=== PATIENT | female | born 1960 | race American Indian/Alaskan Native ===

== ENCOUNTER 2020-11-15 15:43 | Inpatient (IN) | payer MEDICARE ==
--- NOTE | 2020-11-16 04:47 | XRay Report ---
CHEST 1 VIEW 11/16/2020 3:31 AM INDICATION / CLINICAL INFORMATION: SOB. COMPARISON: None available. FINDINGS: SUPPORT DEVICES: None. HEART / MEDIASTINUM: Mild cardiomegaly LUNGS / PLEURA: Mild bilateral airspace disease characteristic for pneumonia No pneumothorax. ADDITIONAL FINDINGS: No significant additional findings. IMPRESSION: 1. Mild bilateral pneumonia Signer Name: Mich Chavez MD Signed: 11/16/2020 4:42 AM Workstation Name: [id number]
[2020-11-16] MEDS ORDERED: AZITHROMYCIN/NS 500 MG/250 ML 500 MG/250 ML BAG IV ONE (12:05)
[2020-11-16] MEDS ORDERED: SODIUM CHLORIDE 0.9% 500 ML 500 ML IV ONE (12:05)
[2020-11-16] MEDS ORDERED: cefTRIAXone/NS 2 GM/100 ML 2 GM/100 ML BAG IV ONE (12:05)
[2020-11-16] MEDS ORDERED: ONDANSETRON 4 MG/2 ML INJ IV ONE (12:38)
[2020-11-16 12:39] LABS: Eosinophils % (Auto) 0.2 % (0.0-4.3); Hematocrit 43.2 % (30.3-42.9); Hemoglobin 14.6 gm/dl (10.1-14.3); Lymphocytes # (Auto) 1.1 K/mm3 (1.2-5.4); Lymphocytes % (Auto) 17.3 % (13.4-35.0); Mean Corpuscular HGB Conc 34 % (30-34); Mean Corpuscular Volume 87 fl (79-97); Monocytes # (Auto) 0.8 K/mm3 (0.0-0.8); Monocytes % (Auto) 12.5 % (0.0-7.3); Platelet Count 208 K/mm3 (140-440); Red Blood Count 4.98 M/mm3 (3.65-5.03); Red Cell Distribution Width 14.6 % (13.2-15.2)
[2020-11-16] MEDS ORDERED: HYDROcodone/ACETAMINOPHEN 5-325 MG TAB PO ONE (12:49)
[2020-11-16 14:25] LABS: Alanine Aminotransferase 52 units/L (7-56); Albumin 3.4 g/dL (3.9-5); BUN/Creatinine Ratio 25; Blood Urea Nitrogen 20 mg/dL (7-17); Calcium 9.6 mg/dL (8.4-10.2); Hemolysis Index 10
--- NOTE | 2020-11-16 14:25 | Emergency Department Report ---
ED Shortness of Breath HPI - General Chief Complaint: Dyspnea/Respdistress Stated Complaint: DIFFICULTY BREATHING Time Seen by Provider: 11/16/20 11:58 Source: EMS Mode of arrival: Stretcher Limitations: No Limitations - History of Present Illness Initial Comments: Patient is a 60-year-old F [place] female with past medical history of hypertension who is presenting with shortness of breath especially with exertion over the last 2 to 3 days. Patient states has had off and on cough for almost a month however she is worsened over the past several days. Patient is states she has nausea vomiting diarrhea body aches and a productive cough. Patient states after walking several feet she becomes very dizzy. Patient is not immunized to COVID-19. - Related Data Allergies Allergy/AdvReac Type Severity Reaction Status Date / Time No Known Allergies Allergy Unverified 11/16/20 04:00 ED Review of Systems ROS: Stated complaint: DIFFICULTY BREATHING Other details as noted in HPI Comment: All other systems reviewed and negative ED Past Medical Hx - Past Medical History Previous Medical History?: Yes Hx Hypertension: Yes ED Physical Exam - General Limitations: No Limitations General appearance: alert, other (Ill-appearing but nontoxic) - Head Head exam: Present: atraumatic, normocephalic - Eye Eye exam: Present: normal appearance, PERRL, EOMI - ENT ENT exam: Present: mucous membranes moist - Neck Neck exam: Present: normal inspection - Respiratory Respiratory exam: Present: respiratory distress, rhonchi. Absent: normal lung sounds bilaterally, wheezes, rales - Cardiovascular Cardiovascular Exam: Present: regular rate, normal rhythm, normal heart sounds. Absent: systolic murmur, diastolic murmur, rubs, gallop - GI/Abdominal GI/Abdominal exam: Present: soft, normal bowel sounds. Absent: distended, tenderness, guarding, rebound, rigid - Extremities Exam Extremities exam: Present: normal inspection - Back Exam Back exam: Present: normal inspection - Neurological Exam Neurological exam: Present: alert, oriented X3 - Psychiatric Psychiatric exam: Present: normal affect, normal mood - Skin Skin exam: Present: warm, dry, intact, normal color. Absent: rash ED Course Vital Signs 11/15/20 11/15/20 11/16/20 16:22 23:49 12:32 Temperature 99.0 F 98.7 F Pulse Rate 62 63 Respiratory 21 16 22 Rate Blood Pressure 112/75 Blood Pressure 98/64 [Right] O2 Sat by Pulse 100 97 94 Oximetry 11/16/20 11/16/20 11/16/20 12:33 13:00 13:30 Temperature 97.7 F Pulse Rate 64 57 L 56 L Respiratory 22 22 22 Rate Blood Pressure 123/80 123/80 Blood Pressure 118/83 [Right] O2 Sat by Pulse 94 99 Oximetry 11/16/20 14:00 Temperature Pulse Rate 55 L Respiratory 20 Rate Blood Pressure 119/75 Blood Pressure [Right] O2 Sat by Pulse 97 Oximetry ED Medical Decision Making - Lab Data Result diagrams: 11/16/20 11:04 11/16/20 13:34 Lab Results 11/16/20 11/16/20 11/16/20 Range/Units 11:04 13:34 13:34 WBC 6.3 (4.5-11.0) K/mm3 RBC 4.98 (3.65-5.03) M/mm3 Hgb 14.6 H (10.1-14.3) gm/dl Hct 43.2 H (30.3-42.9) % MCV 87 (79-97) fl MCH 29 (28-32) pg MCHC 34 (30-34) % RDW 14.6 (13.2-15.2) % Plt Count 208 (140-440) K/mm3 Lymph % (Auto) 17.3 (13.4-35.0) % [place] % (Auto) 12.5 H (0.0-7.3) % Eos % (Auto) 0.2 (0.0-4.3) % Baso % (Auto) Jv [employer] Lymph # (Auto) 1.1 L (1.2-5.4) K/mm3 [place] # (Auto) 0.8 (0.0-0.8) K/mm3 Eos # (Auto) 0.0 (0.0-0.4) K/mm3 Baso # (Auto) 0.0 (0.0-0.1) K/mm3 Seg Neutrophils % 69.8 (40.0-70.0) % Seg Neutrophils # 4.4 (1.8-7.7) K/mm3 D-Dimer (0-234) ng/mlDDU Sodium 134 L (137-145) mmol/L Potassium 3.6 (3.6-5.0) mmol/L Chloride 96.2 L (98-107) mmol/L Carbon Dioxide 20 L (22-30) mmol/L Anion Gap 21 mmol/L BUN 20 H (7-17) mg/dL Creatinine 0.8 (0.6-1.2) mg/dL Estimated GFR > 60 ml/min BUN/Creatinine Ratio 25 % Glucose 98 (65-100) mg/dL Lactic Acid 2.60 H* (0.7-2.0) mmol/L Calcium 9.6 (8.4-10.2) mg/dL Ferritin (10.0-200.0) ng/mL Total Bilirubin 0.60 (0.1-1.2) mg/dL AST 50 H (5-40) units/L ALT 52 (7-56) units/L Alkaline Phosphatase 72 (35-129) units/L Lactate Dehydrogenase 274 H (91-180) units/L C-Reactive Protein 14.20 H (0.00-1.30) mg/dL Total Protein 7.4 (6.3-8.2) g/dL Albumin 3.4 L (3.9-5) g/dL Albumin/Globulin Ratio 0.9 % 11/16/20 11/16/20 Range/Units 13:34 13:34 WBC (4.5-11.0) K/mm3 RBC (3.65-5.03) M/mm3 Hgb (10.1-14.3) gm/dl Hct (30.3-42.9) % MCV (79-97) fl MCH (28-32) pg MCHC (30-34) % RDW (13.2-15.2) % Plt Count (140-440) K/mm3 Lymph % (Auto) (13.4-35.0) % [place] % (Auto) (0.0-7.3) % Eos % (Auto) (0.0-4.3) % Baso % (Auto) Lymph # (Auto) (1.2-5.4) K/mm3 [place] # (Auto) (0.0-0.8) K/mm3 Eos # (Auto) (0.0-0.4) K/mm3 Baso # (Auto) (0.0-0.1) K/mm3 Seg Neutrophils % (40.0-70.0) % Seg Neutrophils # (1.8-7.7) K/mm3 D-Dimer 1770.20 H (0-234) ng/mlDDU Sodium (137-145) mmol/L Potassium (3.6-5.0) mmol/L Chloride (98-107) mmol/L Carbon Dioxide (22-30) mmol/L Anion Gap mmol/L BUN (7-17) mg/dL Creatinine (0.6-1.2) mg/dL Estimated GFR ml/min BUN/Creatinine Ratio % Glucose (65-100) mg/dL Lactic Acid (0.7-2.0) mmol/L Calcium (8.4-10.2) mg/dL Ferritin 616.0 H (10.0-200.0) ng/mL Total Bilirubin (0.1-1.2) mg/dL AST (5-40) units/L ALT (7-56) units/L Alkaline Phosphatase (35-129) units/L Lactate Dehydrogenase (91-180) units/L C-Reactive Protein (0.00-1.30) mg/dL Total Protein (6.3-8.2) g/dL Albumin (3.9-5) g/dL Albumin/Globulin Ratio % - Radiology Data Chest x-ray shows bilateral lower lobe infiltrates consistent with Covid pneumonia - Medical Decision Making Patient is a 60-year-old F [place] female who is presenting with shortness of breath with exertion nausea vomiting body aches cough who has bilateral infiltr ates on chest x-ray. Patient has significant elevation of her inflammatory markers. Critical care attestation.: If time is entered above; I have spent that time in minutes in the direct care of this critically ill patient, excluding procedure time. ED Disposition Clinical Impression: Bilateral pneumonia, Nausea & vomiting Disposition: ADMITTED INPATIENT Is pt being admited?: Yes Does the pt Need Aspirin: No Condition: Stable Instructions: Bacterial Pneumonia (ED) Time of Disposition: 14:41
[2020-11-16] MEDS ORDERED: ONDANSETRON 4 MG/2 ML INJ IV PRN (14:33)
[2020-11-16] MEDS ORDERED: oxyCODONE /ACETAMINOPHEN 5-325MG TAB PO PRN (14:33)
[2020-11-16] MEDS ORDERED: ALBUTEROL 2.5 MG/3 ML NEBU IH PRN (14:33)
[2020-11-16] MEDS ORDERED: HYDROmorphone 1 MG/1 ML INJ IV PRN (14:33)
[2020-11-16] MEDS ORDERED: ACETAMINOPHEN 325 MG TAB PO PRN (14:33)
--- NOTE | 2020-11-16 14:33 | History and Physical Report ---
History of Present Illness Chief complaint: I cannot breathe History of present illness: 60 YO Female with HTN presents to ED for evaluation. Patient reports "I cannot breathe". Patient states that she has experienced shortness of breath over the past 3 days with persistent and worsening symptoms over the same timeframe. Patient knowledges malaise, fatigue, subjective fever, productive cough, body aches, decreased exercise tolerance, decreased sense of smell, decreased sense of taste. EMS was notified and upon arrival the patient was found to be in distress and subsequently transported to [facility] for further care and evaluation of the aforementioned symptoms. The patient was seen and evaluated in the emergenc y department. All lab and imaging studies reviewed. The patient was found to have a pulse oximetry of 87% with exertion which is consistent with acute hypoxemic respiratory failure. Chest x-ray revealed bilateral pneumonia. Patient admitted to medical floor and initiated on pneumonia protocol as well as coronavirus protocol. Patient denies chest pain, palpitation, skin rash, recent ill contacts, or known exposure to COVID-19. Patient is not immunized to COVID- 19. No prior admission for review. No medication listed at time of admission for reconciliation. Advanced care planning conducted in the emergency department. Past History Past Medical History: hypertension Past Surgical History: No surgical history, Other (Reviewed) Social history: single. denies: smoking, alcohol abuse, prescription drug abuse Family history: hypertension Medications and Allergies Allergies Allergy/AdvReac Type Severity Reaction Status Date / Time No Known Allergies Allergy Unverified 11/16/20 04:00 Review of Systems Constitutional: fever, fatigue, weakness, malaise, lethargy, no weight loss, no weight gain Ears, nose, mouth and throat: other (Diminished sense of smell, diminished sense of taste), no ear pain, no ear discharge, no tinnitis, no nasal discharge Breasts: no change in shape, no swelling, no mass Cardiovascular: no chest pain, no orthopnea, no palpitations Respiratory: cough, cough with sputum, shortness of breath Gastrointestinal: no abdominal pain, no nausea, no vomiting, no diarrhea Genitourinary Female: no pelvic pain, no flank pain, no dysuria, no urinary frequency, no urgency Rectal: no pain, no incontinence, no bleeding Musculoskeletal: no neck stiffness, no shooting arm pain, no low back pain, no leg numbness/tingling Integumentary: no rash, no pruritis, no sores, no wounds, no jaundice Neurological: no head injury, no transient paralysis, no parathesias, no tingling, no syncope Psychiatric: no anxiety, no memory loss, no change in sleep habits, no sleep disturbances, no insomnia, no change in appetite, no change in libido Endocrine: no cold intolerance, no heat intolerance, no excessive thirst, no polydipsia, no nocturia, no excessive sweating Hematologic/Lymphatic: no easy bruising, no lymphedema Allergic/Immunologic: no urticaria, no allergic rhinitis, no anaphylaxis Exam - Constitutional Vitals: Temp Pulse Resp BP Pulse Ox 97.7 F 55 L 20 119/75 97 11/16/20 12:33 11/16/20 14:00 11/16/20 14:00 11/16/20 14:00 11/16/20 14:00 General appearance: Present: mild distress - EENT Eyes: Present: PERRL ENT: hearing intact, clear oral mucosa - Neck Neck: Present: supple, normal ROM - Respiratory Respiratory effort: normal, labored, accessory muscle use Respiratory: bilateral: diminished - Cardiovascular Heart Sounds: Present: S1 & S2. Absent: rub, click - Extremities Extremities: pulses symmetrical, No edema Peripheral Pulses: within normal limits - Abdominal General gastrointestinal: Present: soft, non-tender, non-distended, normal bowel sounds Female genitourinary: Present: normal - Integumentary Integumentary: Present: clear, warm, dry - Musculoskeletal Musculoskeletal: gait normal, strength equal bilaterally - Psychiatric Psychiatric: appropriate mood/affect, intact judgment & insight - Neurologic Neurologic: CNII-XII intact, moves all extremities Results - Labs CBC & Chem 7: 11/16/20 11:04 11/16/20 13:34 Labs: Abnormal lab results 11/16/20 11/16/20 11/16/20 Range/Units 11:04 13:34 13:34 Hgb 14.6 H (10.1-14.3) gm/dl Hct 43.2 H (30.3-42.9) % [place] % (Auto) 12.5 H (0.0-7.3) % Lymph # (Auto) 1.1 L (1.2-5.4) K/mm3 D-Dimer (0-234) ng/mlDDU Sodium 134 L (137-145) mmol/L Chloride 96.2 L (98-107) mmol/L Carbon Dioxide 20 L (22-30) mmol/L BUN 20 H (7-17) mg/dL Lactic Acid 2.60 H* (0.7-2.0) mmol/L Ferritin (10.0-200.0) ng/mL AST 50 H (5-40) units/L Lactate Dehydrogenase 274 H (91-180) units/L C-Reactive Protein 14.20 H (0.00-1.30) mg/dL Albumin 3.4 L (3.9-5) g/dL 11/16/20 11/16/20 Range/Units 13:34 13:34 Hgb (10.1-14.3) gm/dl Hct (30.3-42.9) % [place] % (Auto) (0.0-7.3) % Lymph # (Auto) (1.2-5.4) K/mm3 D-Dimer 1770.20 H (0-234) ng/mlDDU Sodium (137-145) mmol/L Chloride (98-107) mmol/L Carbon Dioxide (22-30) mmol/L BUN (7-17) mg/dL Lactic Acid (0.7-2.0) mmol/L Ferritin 616.0 H (10.0-200.0) ng/mL AST (5-40) units/L Lactate Dehydrogenase (91-180) units/L C-Reactive Protein (0.00-1.30) mg/dL Albumin (3.9-5) g/dL Assessment and Plan - Patient Problems (1) Acute hypoxemic respiratory failure Current Visit: Yes Status: Acute Plan to address problem: Chest x-ray, supplemental oxygen, pulse oximetry, nebulizer therapy, prone positioning while in bed, pulmonary toilet. (2) Suspected 2019 novel coronavirus infection Current Visit: Yes Status: Acute Plan to address problem: Coronavirus protocol: IV antibiotic therapy, IV steroid therapy, supplemental oxygen, pulse oximetry, vitamin C therapy, vitamin D therapy, zinc therapy, p rophylactic anticoagulation (3) Bilateral pneumonia Current Visit: Yes Status: Acute Plan to address problem: Pneumonia protocol: Chest x-ray, CBC, CMP, supplemental oxygen, pulse oximetry, nebulizer therapy, blood culture, IV antibiotic therapy. (4) DVT prophylaxis Current Visit: Yes Status: Acute Plan to address problem: SCD to bilateral lower extremities while in bed, prophylactic anticoagulation (5) Advance care planning Current Visit: Yes Status: Acute Plan to address problem: Disease education conducted, care plan discussed, diagnoses discussed, prognosis discussed, patient is full code, patient knowledges understanding and agreement with care plan, +30 minutes.
[2020-11-16] MEDS: HEPARIN 5,000 UNIT/1 ML VIAL SUB-Q SCH (22:05)
[2020-11-16] MEDS: ASCORBIC ACID 500 MG TAB PO SCH (22:06)
[2020-11-16] MEDS: ZINC SULFATE 220 MG CAP PO SCH (22:06)
[2020-11-16] MEDS: methylPREDNISolone Sod Succinate 40 MG/1 ML INJ IV SCH (22:07)
[2020-11-17] MEDS: methylPREDNISolone Sod Succinate 40 MG/1 ML INJ IV SCH ×3 (06:30→22:34)
[2020-11-17 06:51] LABS: Basophils % (Auto) 0.1 % (0.0-1.8); Eosinophils % (Auto) 0.1 % (0.0-4.3); Hematocrit 40.2 % (30.3-42.9); Hemoglobin 13.4 gm/dl (10.1-14.3); Lymphocytes # (Auto) 0.5 K/mm3 (1.2-5.4); Lymphocytes % (Auto) 9.3 % (13.4-35.0); Mean Corpuscular HGB Conc 33 % (30-34); Mean Corpuscular Volume 87 fl (79-97); Monocytes # (Auto) 0.3 K/mm3 (0.0-0.8); Monocytes % (Auto) 5.5 % (0.0-7.3); Platelet Count 196 K/mm3 (140-440); Red Blood Count 4.61 M/mm3 (3.65-5.03); Red Cell Distribution Width 14.4 % (13.2-15.2)
[2020-11-17 07:00] LABS: Blood Urea Nitrogen 18 mg/dL (7-17); Calcium 9.4 mg/dL (8.4-10.2); Hemolysis Index 4
[2020-11-17 07:22] LABS: BUN/Creatinine Ratio 26
[2020-11-17] MEDS ORDERED: CHOLECALCIFEROL (VIT D3) 400 UNIT TAB PO SCH (10:00)
--- NOTE | 2020-11-17 10:11 | Cat Scan Report ---
CTA CHEST WITH CONTRAST INDICATION / CLINICAL INFORMATION: shortness of breath, chest pain OMNI 350 100ML . TECHNIQUE: Axial CT images were obtained through the chest after injection of IV contrast. 3 plane PA P and/or 3D reconstructions were produced. All CT scans at this location are performed using CT dose reduction for ALARA by means of automated exposure control. COMPARISON: Chest radiograph one day prior FINDINGS: PULMONARY ARTERIES: No pulmonary emboli. THORACIC AORTA: No significant abnormality. HEART: No significant abnormality. CORONARY ARTERY CALCIFICATION: None. MEDIASTINUM / ANA: No significant abnormality. PLEURA: No pleural effusion. No pneumothorax. LUNGS: Multilobar pneumonia more significantly involving the left upper and lower lobes. ADDITIONAL FINDINGS: None. UPPER ABDOMEN: No acute findings. SKELETAL STRUCTURES: No significant osseous abnormality. IMPRESSION: 1. No CT evidence for pulmonary embolism. 2. Multilobar pneumonia, more significantly involving the left upper and lower lobes. Signer Name: Darren Pizarro MD Signed: 11/17/2020 10:07 AM Workstation Name: [id number]
[2020-11-17] MEDS: ASCORBIC ACID 500 MG TAB PO SCH ×2 (10:18→22:34)
[2020-11-17] MEDS: ZINC SULFATE 220 MG CAP PO SCH ×2 (10:18→22:35)
[2020-11-17] MEDS: CHOLECALCIFEROL (VIT D3) 1000 UNIT (25 mcg) TAB PO SCH (10:18)
[2020-11-17] MEDS: HEPARIN 5,000 UNIT/1 ML VIAL SUB-Q SCH ×2 (10:18→22:34)
[2020-11-17] MEDS ORDERED: AZITHROMYCIN/NS 500 MG/250 ML 500 MG/250 ML BAG IV SCH (12:00)
--- NOTE | 2020-11-17 12:15 | Progress Note ---
Assessment and Plan Assessment and plan: 60 YO Female with HTN presents to ED for evaluation. Patient reports "I cannot breathe". Patient states that she has experienced shortness of breath over the past 3 days with persistent and worsening symptoms over the same timeframe. Patient knowledges malaise, fatigue, subjective fever, productive cough, body aches, decreased exercise tolerance, decreased sense of smell, decreased sense of taste. EMS was notified and upon arrival the patient was found to be in distress and subsequently transported to [facility] for further care and evaluation of the aforementioned symptoms. The patient was seen and evaluated in the emergency department. All lab and imaging studies reviewed. The patient was found to have a pulse oximetry of 87% with exertion which is consistent with acute hypoxemic respiratory failure. Chest x-ray revealed bilateral pneumonia. Patient admitted to medical floor and initiated on pneumonia protocol as well as coronavirus protocol. Patient denies chest pain, palpitation, skin rash, recent ill contacts, or known exposure to COVID-19. Patient is not immunized to COVID- 19. No prior admission for review. No medication listed at time of admission for reconciliation. Advanced care planning conducted in the emergency department. 11/17: Considering patient's chest pain which is atypical in nature. I did a stat EKG and also cardiac enzymes. We will continue current management patient is comfortable on 2 L of oxygen. She reports that she is homeless we will also get case management consultation. CTA was ordered as patient has significantly elevated D-dimer CTA concerning for pneumonia multilobar pneumonia and left upper and lower lobe. No evidence of pulmonary embolism. Plan discussed with nursing staff at bedside. Awaiting Covid test results. Otherwise continue current management as outlined below If postive will consult ID (1) Acute hypoxemic respiratory failure Current Visit: Yes Status: Acute Plan to address problem: Chest x-ray, supplemental oxygen, pulse oximetry, nebulizer therapy, prone positioning while in bed, pulmonary toilet. (2) Suspected 2019 novel coronavirus infection Current Visit: Yes Status: Acute Plan to address problem: Coronavirus protocol: IV antibiotic therapy, IV steroid therapy, supplemental oxygen, pulse oximetry, vitamin C therapy, vitamin D therapy, zinc therapy, prophylactic anticoagulation (3) Bilateral pneumonia Current Visit: Yes Status: Acute Plan to address problem: Pneumonia protocol: Chest x-ray, CBC, CMP, supplemental oxygen, pulse oximetry, nebulizer therapy, blood culture, IV antibiotic therapy. (4) atypical chest pain secondary to costochondritis (5) Homelessness (6) DVT prophylaxis Current Visit: Yes Status: Acute Plan to address problem: SCD to bilateral lower extremities while in bed, prophylactic anticoagulation (6) Advance care planning Current Visit: Yes Status: Acute Plan to address problem: Disease education conducted, care plan discussed, diagnoses discussed, prognosis discussed, patient is full code, patient knowledges understanding and agreement with care plan, +30 minutes. History Interval history: Patient seen and examined on 2 L of oxygen but complains of shortness of breath and chest pain. Chest pain 2/10 in intensity. Just appears uncomfortable Hospitalist Physical - Physical exam Narrative exam: VITAL SIGNS: Reviewed. GENERAL: The patient appears normally developed, appears older than stated age vital signs as documented. HEAD: No signs of head trauma. EYES: Pupils are equal. Extraocular motions intact. EARS: Hearing grossly intact. MOUTH: Oropharynx is normal. NECK: No adenopathy, no JVD. CHEST: Chest with diminished breath sounds bilaterally. No wheezes, rales, or rhonchi. CARDIAC: Regular rate and rhythm. S1 and S2, without murmurs, gallops, or rubs. VASCULAR: No Edema. Peripheral pulses normal and equal in all extremities. ABDOMEN: Soft, non tender and non distended. No rebound or guarding, and no masses palpated. Bowel Sounds normal. MUSCULOSKELETAL: Good range of motion of all major joints. Extremities without clubbing, cyanosis or edema. NEUROLOGIC EXAM: Alert and oriented x 3 No focal sensory or strength deficits . Speech normal. Follows commands. PSYCHIATRIC: Mood normal. SKIN: detail exam as documented in skin assessment - Constitutional Vitals: Temp Pulse Resp BP Pulse Ox 97.7 F 51 L 20 112/78 99 11/16/20 12:33 11/17/20 05:30 11/17/20 05:30 11/17/20 05:30 11/17/20 05:30 General appearance: Present: mild distress Results - Labs CBC & Chem 7: 11/17/20 06:08 11/17/20 06:08 Labs: Laboratory Last Values WBC 5.6 K/mm3 (4.5-11.0) 11/17/20 06:08 RBC 4.61 M/mm3 (3.65-5.03) 11/17/20 06:08 Hgb 13.4 gm/dl (10.1-14.3) 11/17/20 06:08 Hct 40.2 % (30.3-42.9) 11/17/20 06:08 MCV 87 fl (79-97) 11/17/20 06:08 MCH 29 pg (28-32) 11/17/20 06:08 MCHC 33 % (30-34) 11/17/20 06:08 RDW 14.4 % (13.2-15.2) 11/17/20 06:08 Plt Count 196 K/mm3 (140-440) 11/17/20 06:08 Lymph % (Auto) 9.3 % (13.4-35.0) L 11/17/20 06:08 [place] % (Auto) 5.5 % (0.0-7.3) 11/17/20 06:08 Eos % (Auto) 0.1 % (0.0-4.3) 11/17/20 06:08 Baso % (Auto) 0.1 % (0.0-1.8) 11/17/20 06:08 Lymph # (Auto) 0.5 K/mm3 (1.2-5.4) L 11/17/20 06:08 [place] # (Auto) 0.3 K/mm3 (0.0-0.8) 11/17/20 06:08 Eos # (Auto) 0.0 K/mm3 (0.0-0.4) 11/17/20 06:08 Baso # (Auto) 0.0 K/mm3 (0.0-0.1) 11/17/20 06:08 Seg Neutrophils % 85.0 % (40.0-70.0) H 11/17/20 06:08 Seg Neutrophils # 4.8 K/mm3 (1.8-7.7) 11/17/20 06:08 D-Dimer 1770.20 ng/mlDDU (0-234) H 11/16/20 13:34 Sodium 136 mmol/L (137-145) L 11/17/20 06:08 Potassium 4.1 mmol/L (3.6-5.0) 11/17/20 06:08 Chloride 98.1 mmol/L (98-107) 11/17/20 06:08 Carbon Dioxide 22 mmol/L (22-30) 11/17/20 06:08 Anion Gap 20 mmol/L 11/17/20 06:08 BUN 18 mg/dL (7-17) H 11/17/20 06:08 Creatinine 0.7 mg/dL (0.6-1.2) 11/17/20 06:08 Estimated GFR > 60 ml/min 11/17/20 06:08 BUN/Creatinine Ratio 26 % 11/17/20 06:08 Glucose 120 mg/dL (65-100) H 11/17/20 06:08 Lactic Acid 1.10 mmol/L (0.7-2.0) 11/17/20 06:08 Calcium 9.4 mg/dL (8.4-10.2) 11/17/20 06:08 Ferritin 616.0 ng/mL (10.0-200.0) H 11/16/20 13:34 Total Bilirubin 0.60 mg/dL (0.1-1.2) 11/16/20 13:34 AST 50 units/L (5-40) H 11/16/20 13:34 ALT 52 units/L (7-56) 11/16/20 13:34 Alkaline Phosphatase 72 units/L (35-129) 11/16/20 13:34 Lactate Dehydrogenase 274 units/L (91-180) H 11/16/20 13:34 C-Reactive Protein 14.20 mg/dL (0.00-1.30) H 11/16/20 13:34 Total Protein 7.4 g/dL (6.3-8.2) 11/16/20 13:34 Albumin 3.4 g/dL (3.9-5) L 11/16/20 13:34 Albumin/Globulin Ratio 0.9 % 11/16/20 13:34 Procalcitonin < 0.05 ng/mL (<0.15) 11/16/20 13:34 Microbiology: Microbiology 11/16/20 13:34 Peripheral/Venous Blood Culture - Preliminary Culture in Progress 11/16/20 13:34 Peripheral/Venous Blood Culture - Preliminary Culture in Progress Active Medications - Current Medications Current Medications: Generic Name Dose Route Start Last Admin Trade Name Freq PRN Reason Stop Dose Admin Acetaminophen 650 mg 11/16/20 14:33 Acetaminophen 325 Mg Tab PO Q4H PRN Pain MILD(1-3)/Fever >100.5/TIAN Albuterol 2.5 mg 11/16/20 14:33 Albuterol 2.5 Mg/3 Ml Nebu IH Q4HRT PRN Shortness Of Breath Ascorbic Acid 500 mg 11/16/20 22:00 11/17/20 10:18 Ascorbic Acid 500 Mg Tab PO 500 mg BID ISAK Administration Cholecalciferol 1,000 unit 11/17/20 10:00 11/17/20 10:18 Cholecalciferol (Vit D3) 1000 Unit (25 Mcg) Tab PO 1,000 unit DAILY ISAK Administration Heparin Sodium (Porcine) 5,000 unit 11/16/20 22:00 11/17/20 10:18 Heparin 5,000 Unit/1 Ml Vial SUB-Q 5,000 unit Q12HR ISAK Administration Hydromorphone HCl 0.5 mg 11/16/20 14:33 Hydromorphone 1 Mg/1 Ml Inj IV Q12H PRN Pain , Severe (7-10) Ceftriaxone Sodium 2 gm in 100 mls @ 200 mls/hr 11/17/20 12:00 Rocephin/Ns 2 Gm/100 Ml IV Q24H ISAK Protocol Azithromycin 500 mg in 250 mls @ 250 mls/hr 11/17/20 12:00 Zithromax/Ns IV Q24H ISAK Protocol Methylprednisolone Sodium Succinate 40 mg 11/16/20 22:00 11/17/20 06:30 Methylprednisolone Sod Succinate 40 Mg/1 Ml Inj IV 40 mg Q8HR ISAK Administration Ondansetron HCl 4 mg 11/16/20 14:33 Ondansetron 4 Mg/2 Ml Inj IV Q8H PRN Nausea And Vomiting Oxycodone/Acetaminophen 1 tab 11/16/20 14:33 Oxycodone /Acetaminophen 5-325mg Tab PO Q12H PRN Pain, Moderate (4-6) Sodium Chloride 10 ml 11/16/20 22:00 11/17/20 11:40 Sodium Chloride 0.9% 10 Ml Flush Syringe IV Not Given BID ISAK Sodium Chloride 10 ml 11/16/20 14:33 Sodium Chloride 0.9% 10 Ml Flush Syringe IV PRN PRN LINE FLUSH Zinc Sulfate 220 mg 11/16/20 22:00 11/17/20 10:18 Zinc Sulfate 220 Mg Cap PO 220 mg BID ISAK Administration
[2020-11-17 12:17] LABS: Creatine Kinase MB 1.4 ng/mL (0.0-4.0)
[2020-11-17] MEDS: cefTRIAXone/NS 2 GM/100 ML 2 GM/100 ML BAG IV SCH (12:30)
[2020-11-17 12:58] LABS: Creatine Kinase MB 1.4 ng/mL (0.0-4.0)
[2020-11-17 19:15] LABS: Creatine Kinase MB 1.3 ng/mL (0.0-4.0)
[2020-11-18] MEDS: methylPREDNISolone Sod Succinate 40 MG/1 ML INJ IV SCH ×3 (05:57→22:36)
[2020-11-18 07:12] LABS: Alanine Aminotransferase 38 units/L (7-56); Albumin 3.3 g/dL (3.9-5); Blood Urea Nitrogen 17 mg/dL (7-17); Calcium 9.6 mg/dL (8.4-10.2); Chol/HDL Ratio 3.93 %; HDL Cholesterol 33 mg/dL (40-59); Hemolysis Index 2; LDL Cholesterol,Direct 75 mg/dL (50-130)
[2020-11-18 07:27] LABS: BUN/Creatinine Ratio 24
[2020-11-18 07:44] LABS: Hematocrit 40.1 % (30.3-42.9); Hemoglobin 13.3 gm/dl (10.1-14.3); Mean Corpuscular HGB Conc 33 % (30-34); Mean Corpuscular Volume 86 fl (79-97); Platelet Count 248 K/mm3 (140-440); Red Blood Count 4.67 M/mm3 (3.65-5.03); Red Cell Distribution Width 14.5 % (13.2-15.2)
[2020-11-18] MEDS: ASCORBIC ACID 500 MG TAB PO SCH ×2 (10:15→22:36)
[2020-11-18] MEDS: AZITHROMYCIN 250 MG TAB PO SCH (10:15)
[2020-11-18] MEDS: HEPARIN 5,000 UNIT/1 ML VIAL SUB-Q SCH ×2 (10:15→22:37)
[2020-11-18] MEDS: CHOLECALCIFEROL (VIT D3) 1000 UNIT (25 mcg) TAB PO SCH (10:15)
[2020-11-18] MEDS: ZINC SULFATE 220 MG CAP PO SCH ×2 (10:15→22:36)
--- NOTE | 2020-11-18 11:34 | Progress Note ---
Assessment and Plan Assessment and plan: Assessment and Plan Assessment and plan: 60 YO Female with HTN presents to ED for evaluation. Patient reports "I cannot breathe". Patient states that she has experienced shortness of breath over the past 3 days with persistent and worsening symptoms over the same timeframe. Patient knowledges malaise, fatigue, subjective fever, productive cough, body aches, decreased exercise tolerance, decreased sense of smell, decreased sense of taste. EMS was notified and upon arrival the patient was found to be in distress and subsequently transported to [facility] for further care and evaluation of the aforementioned symptoms. The patient was seen and evaluated in the e mergency department. All lab and imaging studies reviewed. The patient was found to have a pulse oximetry of 87% with exertion which is consistent with acute hypoxemic respiratory failure. Chest x-ray revealed bilateral pneumonia. Patient admitted to medical floor and initiated on pneumonia protocol as well as coronavirus protocol. Patient denies chest pain, palpitation, skin rash, recent ill contacts, or known exposure to COVID-19. Patient is not immunized to COVID- 19. No prior admission for review. No medication listed at time of admission for reconciliation. Advanced care planning conducted in the emergency department. 11/17: Considering patient's chest pain which is atypical in nature. I did a stat EKG and also cardiac enzymes. We will continue current management patient is comfortable on 2 L of oxygen. She reports that she is homeless we will also get case management consultation. CTA was ordered as patient has significantly elevated D-dimer CTA concerning for pneumonia multilobar pneumonia and left upper and lower lobe. No evidence of pulmonary embolism. Plan discussed with nursing staff at bedside. Awaiting Covid test results. Otherwise continue current management as outlined below If postive will consult ID 11/18/20 patient is seen and examined. Patient is doing better. Decreased shortness of breath and coughing. Patient is on 2 L of oxygen with O2 sat of 99%. We continue to wean the oxygen. Will consult infectious disease for evaluation. Patient is homeless we will get a consult for case management. Continue current management. Continue supportive care (1) Acute hypoxemic respiratory failure Current Visit: Yes Status: Acute Plan to address problem: Chest x-ray, supplemental oxygen, pulse oximetry, nebulizer therapy, prone positioning while in bed, pulmonary toilet. (2) Suspected 2019 novel coronavirus infection Current Visit: Yes Status: Acute Plan to address problem: Coronavirus protocol: IV antibiotic therapy, IV steroid therapy, supplemental oxygen, pulse oximetry, vitamin C therapy, vitamin D therapy, zinc therapy, prophylactic anticoagulation (3) Bilateral pneumonia Current Visit: Yes Status: Acute Plan to address problem: Pneumonia protocol: Chest x-ray, CBC, CMP, supplemental oxygen, pulse oximetry, nebulizer therapy, blood culture, IV antibiotic therapy. (4) atypical chest pain secondary to costochondritis (5) Homelessness (6) DVT prophylaxis Current Visit: Yes Status: Acute Plan to address problem: SCD to bilateral lower extremities while in bed, prophylactic anticoagulation (6) Advance care planning Current Visit: Yes Status: Acute Plan to address problem: Disease education conducted, care plan discussed, diagnoses discussed, prognosis discussed, patient is full code, patient knowledges understanding and agreement with care plan, +30 minutes. History History Interval history: Patient is seen and examined. Lab and medication is reviewed. Patient has decreased shortness of breath and coughing. Patient is on 2 L of oxygen with O2 sat of 99%. Will wean the oxygen requirement. No other complaints Hospitalist Physical - Constitutional Vitals: Temp Pulse Resp BP Pulse Ox 98.9 F 58 L 17 134/78 99 11/18/20 00:00 11/18/20 08:00 11/18/20 08:00 11/18/20 08:00 11/18/20 08:10 General appearance: Present: no acute distress, mild distress - EENT Eyes: Present: EOM intact ENT: hearing intact, clear oral mucosa, dentition normal - Neck Neck: Present: supple, normal ROM - Respiratory Respiratory effort: normal Respiratory: bilateral: diminished - Cardiovascular Rhythm: regular Heart Sounds: Present: S1 & S2 - Extremities Extremities: no ischemia, No edema Peripheral Pulses: within normal limits - Abdominal General gastrointestinal: soft, non-tender, non-distended, normal bowel sounds - Integumentary Integumentary: Present: clear, warm, dry - Psychiatric Psychiatric: appropriate mood/affect, intact judgment & insight - Neurologic Neurologic: CNII-XII intact, moves all extremities - Allied Health Allied health notes reviewed: nursing HEART Score - HEART Score Troponin: Troponin T < 0.010 ng/mL (0.00-0.029) 11/17/20 18:35 Results - Labs CBC & Chem 7: 11/18/20 05:54 11/18/20 05:54 Labs: Laboratory Last Values WBC 9.2 K/mm3 (4.5-11.0) 11/18/20 05:54 RBC 4.67 M/mm3 (3.65-5.03) 11/18/20 05:54 Hgb 13.3 gm/dl (10.1-14.3) 11/18/20 05:54 Hct 40.1 % (30.3-42.9) 11/18/20 05:54 MCV 86 fl (79-97) 11/18/20 05:54 MCH 29 pg (28-32) 11/18/20 05:54 MCHC 33 % (30-34) 11/18/20 05:54 RDW 14.5 % (13.2-15.2) 11/18/20 05:54 Plt Count 248 K/mm3 (140-440) 11/18/20 05:54 Lymph % (Auto) 9.3 % (13.4-35.0) L 11/17/20 06:08 [place] % (Auto) 5.5 % (0.0-7.3) 11/17/20 06:08 Eos % (Auto) 0.1 % (0.0-4.3) 11/17/20 06:08 Baso % (Auto) 0.1 % (0.0-1.8) 11/17/20 06:08 Lymph # (Auto) 0.5 K/mm3 (1.2-5.4) L 11/17/20 06:08 [place] # (Auto) 0.3 K/mm3 (0.0-0.8) 11/17/20 06:08 Eos # (Auto) 0.0 K/mm3 (0.0-0.4) 11/17/20 06:08 Baso # (Auto) 0.0 K/mm3 (0.0-0.1) 11/17/20 06:08 Seg Neutrophils % 85.0 % (40.0-70.0) H 11/17/20 06:08 Seg Neutrophils # 4.8 K/mm3 (1.8-7.7) 11/17/20 06:08 D-Dimer 1770.20 ng/mlDDU (0-234) H 11/16/20 13:34 Sodium 137 mmol/L (137-145) 11/18/20 05:54 Potassium 3.9 mmol/L (3.6-5.0) 11/18/20 05:54 Chloride 99.7 mmol/L (98-107) 11/18/20 05:54 Carbon Dioxide 23 mmol/L (22-30) 11/18/20 05:54 Anion Gap 18 mmol/L 11/18/20 05:54 BUN 17 mg/dL (7-17) 11/18/20 05:54 Creatinine 0.7 mg/dL (0.6-1.2) 11/18/20 05:54 Estimated GFR > 60 ml/min 11/18/20 05:54 BUN/Creatinine Ratio 24 % 11/18/20 05:54 Glucose 125 mg/dL (65-100) H 11/18/20 05:54 Lactic Acid 1.10 mmol/L (0.7-2.0) 11/17/20 06:08 Calcium 9.6 mg/dL (8.4-10.2) 11/18/20 05:54 Ferritin 616.0 ng/mL (10.0-200.0) H 11/16/20 13:34 Total Bilirubin 0.50 mg/dL (0.1-1.2) 11/18/20 05:54 AST 25 units/L (5-40) 11/18/20 05:54 ALT 38 units/L (7-56) 11/18/20 05:54 Alkaline Phosphatase 66 units/L (35-129) 11/18/20 05:54 Lactate Dehydrogenase 274 units/L (91-180) H 11/16/20 13:34 Total Creatine Kinase 115 units/L (30-135) 11/17/20 18:35 CK-MB (CK-2) 1.3 ng/mL (0.0-4.0) 11/17/20 18:35 CK-MB (CK-2) Rel Index 1.1 (0-4) 11/17/20 18:35 Troponin T < 0.010 ng/mL (0.00-0.029) 11/17/20 18:35 C-Reactive Protein 14.20 mg/dL (0.00-1.30) H 11/16/20 13:34 Total Protein 6.2 g/dL (6.3-8.2) L 11/18/20 05:54 Albumin 3.3 g/dL (3.9-5) L 11/18/20 05:54 Albumin/Globulin Ratio 1.1 % 11/18/20 05:54 Triglycerides 107 mg/dL (2-149) 11/18/20 05:54 Cholesterol 130 mg/dL (50-199) 11/18/20 05:54 LDL Cholesterol Direct 75 mg/dL (50-130) 11/18/20 05:54 HDL Cholesterol 33 mg/dL (40-59) L 11/18/20 05:54 Cholesterol/HDL Ratio 3.93 % 11/18/20 05:54 Procalcitonin < 0.05 ng/mL (<0.15) 11/16/20 13:34 Coronavirus (PCR) Positive (Negative) A 11/17/20 Unknown Microbiology: Microbiology 11/16/20 13:34 Peripheral/Venous Blood Culture - Preliminary NO GROWTH AFTER 24 HOURS 11/16/20 13:34 Peripheral/Venous Blood Culture - Preliminary NO GROWTH AFTER 24 HOURS - Imaging and Cardiology CT scan - chest: report reviewed Active Medications - Current Medications Current Medications: Generic Name Dose Route Start Last Admin Trade Name Freq PRN Reason Stop Dose Admin Acetaminophen 650 mg 11/16/20 14:33 Acetaminophen 325 Mg Tab PO Q4H PRN Pain MILD(1-3)/Fever >100.5/TIAN Albuterol 2.5 mg 11/16/20 14:33 Albuterol 2.5 Mg/3 Ml Nebu IH Q4HRT PRN Shortness Of Breath Ascorbic Acid 500 mg 11/16/20 22:00 11/17/20 22:34 Ascorbic Acid 500 Mg Tab PO 500 mg BID ISAK Administration Azithromycin 500 mg 11/18/20 10:00 Azithromycin 250 Mg Tab PO 11/20/20 10:01 QDAY [facility] Protocol Cholecalciferol 1,000 unit 11/17/20 10:00 11/17/20 10:18 Cholecalciferol (Vit D3) 1000 Unit (25 Mcg) Tab PO 1,000 unit DAILY ISAK Administration Heparin Sodium (Porcine) 5,000 unit 11/16/20 22:00 11/17/20 22:34 Heparin 5,000 Unit/1 Ml Vial SUB-Q 5,000 unit Q12HR ISAK Administration Hydromorphone HCl 0.5 mg 11/16/20 14:33 Hydromorphone 1 Mg/1 Ml Inj IV Q12H PRN Pain , Severe (7-10) Ceftriaxone Sodium 2 gm in 100 mls @ 200 mls/hr 11/17/20 12:00 11/17/20 12:30 Rocephin/Ns 2 Gm/100 Ml IV 11/20/20 12:29 200 mls/hr Q24H ISAK Administration Protocol Methylprednisolone Sodium Succinate 40 mg 11/16/20 22:00 11/18/20 05:57 Methylprednisolone Sod Succinate 40 Mg/1 Ml Inj IV 40 mg Q8HR ISAK Administration Ondansetron HCl 4 mg 11/16/20 14:33 11/17/20 20:01 Ondansetron 4 Mg/2 Ml Inj IV 4 mg Q8H PRN Administration Nausea And Vomiting Oxycodone/Acetaminophen 1 tab 11/16/20 14:33 Oxycodone /Acetaminophen 5-325mg Tab PO Q12H PRN Pain, Moderate (4-6) Sodium Chloride 10 ml 11/16/20 22:00 11/17/20 22:34 Sodium Chloride 0.9% 10 Ml Flush Syringe IV 10 ml BID ISAK Administration Sodium Chloride 10 ml 11/16/20 14:33 Sodium Chloride 0.9% 10 Ml Flush Syringe IV PRN PRN LINE FLUSH Zinc Sulfate 220 mg 11/16/20 22:00 11/17/20 22:35 Zinc Sulfate 220 Mg Cap PO 220 mg BID ISAK Administration Nutrition/Malnutrition Assess - Malnutrition Assessment Minimum of two criteria: Yes - Attestation Statement I have reviewed and agreed w/ Malnutrition eval & tx plan: Yes
[2020-11-18] MEDS: cefTRIAXone/NS 2 GM/100 ML 2 GM/100 ML BAG IV SCH (13:04)
[2020-11-19] MEDS: methylPREDNISolone Sod Succinate 40 MG/1 ML INJ IV SCH ×2 (07:39→14:39)
--- NOTE | 2020-11-19 10:50 | Discharge Summary ---
Providers - Providers Date of Admission: 11/16/20 14:33 Attending physician: OSBALDO DUMONT MD 11/17/20 08:55 Consult to Case Management [CONS] Routine Services Needed at Discharge: Tube Sizer And Cutter Operator Notified:: no Additional Physician Instructions: homeless 11/18/20 11:29 Consult to Physician [CONS] Routine Comment: Consulting Provider: ION ARCINIEGA Physician Instructions: Reason For Exam: covid Primary care physician: CRADLE SLIDE MAKER Hospitalization Reason for admission: COVID-19 positive test (U07.1, COVID-19) with Acute Pneumonia (J12.89, O Condition: Stable Hospital course: 60 YO Female with HTN presents to ED for evaluation. Patient reports "I cannot breathe". Patient states that she has experienced shortness of breath over the past 3 days with persistent and worsening symptoms over the same timeframe. Patient knowledges malaise, fatigue, subjective fever, productive cough, body aches, decreased exercise tolerance, decreased sense of smell, decreased sense of taste. EMS was notified and upon arrival the patient was found to be in distress and subsequently transported to [facility] for further care and evaluation of the aforementioned symptoms. The patient was seen and evaluated in the emergency department. All lab and imaging studies reviewed. The patient was found to have a pulse oximetry of 87% with exertion which is consistent with acute hypoxemic respiratory failure. Chest x-ray revealed bilateral pneumonia. Patient admitted to medical floor and initiated on pneumonia protocol as well as coronavirus protocol. Patient denies chest pain, palpitation, skin rash, recent ill contacts, or known exposure to COVID-19. Patient is not immunized to COVID-19. No prior admission for review. No medication listed at time of admission for reconciliation. Advanced care planning conducted in the emergency department. 11/17: Considering patient's chest pain which is atypical in nature. I did a stat EKG and also cardiac enzymes. We will continue current management patient is comfortable on 2 L of oxygen. She reports that she is homeless we will also get case management consultation. CTA was ordered as patient has significantly elevated D-dimer CTA concerning for pneumonia multilobar pneumonia and left upper and lower lobe. No evidence of pulmonary embolism. Plan discussed with nursing staff at bedside. Awaiting Covid test results. Otherwise continue current management as outlined below If postive will consult ID 11/18/20 patient is seen and examined. Patient is doing better. Decreased shortness of breath and coughing. Patient is on 2 L of oxygen with O2 sat of 99%. We continue to wean the oxygen. Will consult infectious disease for evaluation. Patient is homeless we will get a consult for case management. Continue current management. Continue supportive care 11/19: Patient this morning is stable no chest pain no nausea no vomiting. When I saw her this morning she was on repeat her oxygen and she was satting 95% by rest discussed with nursing staff to obtain a walk test to see if she qualifies for oxygen. If she does she can be discharged on home O2 if not she can go without oxygen if she does not qualify. 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 (1) Acute hypoxemic respiratory failure Current Visit: Yes Status: Acute Plan to address problem: Chest x-ray, supplemental oxygen, pulse oximetry, nebulizer therapy, prone positioning while in bed, pulmonary toilet. (2) 2019 novel coronavirus infection Current Visit: Yes Status: Acute Plan to address problem: Coronavirus protocol: IV antibiotic therapy, IV steroid therapy, supplemental oxygen, pulse oximetry, vitamin C therapy, vitamin D therapy, zinc therapy, prophylactic anticoagulation (3) Bilateral pneumonia Current Visit: Yes Status: Acute Plan to address problem: Pneumonia protocol: Chest x-ray, CBC, CMP, supplemental oxygen, pulse oximetry, nebulizer therapy, blood culture, IV antibiotic therapy. (4) atypical chest pain secondary to costochondritis (5) Homelessness Disposition: 01 HOME / SELF CARE / HOMELESS Final Discharge Diagnosis (Prints w/discharge instructions): COVID-19 Acute Pneumonia (J12.89, Other viral pneumonia). With hypoxic respiratory failure Time spent for discharge: 35 minutes Core Measure Documentation - Palliative Care Palliative Care/ Comfort Measures: Not Applicable - Core Measures Any of the following diagnoses?: none Exam - Physical Exam Narrative exam: VITAL SIGNS: Reviewed. GENERAL: The patient appears normally developed, appears older than stated age vital signs as documented. HEAD: No signs of head trauma. EYES: Pupils are equal. Extraocular motions intact. EARS: Hearing grossly intact. MOUTH: Oropharynx is normal. NECK: No adenopathy, no JVD. CHEST: Chest with diminished breath sounds bilaterally. No wheezes, rales, or rhonchi. CARDIAC: Regular rate and rhythm. S1 and S2, without murmurs, gallops, or rubs. VASCULAR: No Edema. Peripheral pulses normal and equal in all extremities. ABDOMEN: Soft, non tender and non distended. No rebound or guarding, and no masses palpated. Bowel Sounds normal. MUSCULOSKELETAL: Good range of motion of all major joints. Extremities without clubbing, cyanosis or edema. NEUROLOGIC EXAM: Alert and oriented x 3 No focal sensory or strength deficits. Speech normal. Follows commands. PSYCHIATRIC: Mood normal. SKIN: detail exam as documented in skin assessment - Constitutional Vitals: Temp Pulse Resp BP Pulse Ox 98.9 F 63 19 138/89 96 11/18/20 00:00 11/19/20 06:30 11/19/20 06:30 11/19/20 06:30 11/19/20 06:30 Plan Activity: advance as tolerated, fall precautions Diet: low fat Special Instructions: record daily weights, record daily BP diary, home oxygen via (nasal cannula @ 3 liters per minute) Plan of Treatment: continue wearing your mask Follow up with: PRIMARY CARE, [Primary Care Provider] - 7 Days [facility] Depart [Outside] - 7 Days Prescriptions: dexAMETHasone [Dexamethasone] 6 mg PO DAILY #7 tablet Ascorbic Acid [Vitamin C] 500 mg PO BID #60 tablet Cholecalciferol Vit D3 [Vitamin D3 1,000 UNIT TAB] 1,000 unit PO DAILY #30 tablet Zinc Sulfate 220 mg PO BID #60 capsule
[2020-11-19] MEDS: AZITHROMYCIN 250 MG TAB PO SCH (10:52)
[2020-11-19] MEDS: ASCORBIC ACID 500 MG TAB PO SCH (10:53)
[2020-11-19] MEDS: CHOLECALCIFEROL (VIT D3) 1000 UNIT (25 mcg) TAB PO SCH (10:53)
[2020-11-19] MEDS: ZINC SULFATE 220 MG CAP PO SCH (10:53)
[2020-11-19] MEDS: HEPARIN 5,000 UNIT/1 ML VIAL SUB-Q SCH (11:03)
[2020-11-19] MEDS: cefTRIAXone/NS 2 GM/100 ML 2 GM/100 ML BAG IV SCH (12:34)
--- NOTE | 2020-11-19 13:12 | Consultation ---
History of Present Illness - Reason for Consult Consult date: 11/19/20 COVID Requesting physician: CELINA PALACIO - History of Present Illness The patient is a 60-year-old female with hypertension admitted to the hospital with cough and shortness of breath. Upon initial evaluation, she was hypoxic on exertion and hence hospitalized. Chest x-ray revealed bilateral pneumonia. She has remained afebrile. She tested positive for COVID-19. Labs revealed normal WBC, D-dimer 1770, normal troponins, CRP 14.2. Ferritin 616, procalcitonin 0.05 Review of Systems: reviewed in the chart, unable to obtain, minimize risk of transmission Past History Past Medical History: hypertension Past Surgical History: No surgical history, Other (Reviewed) Social history: single. denies: smoking, alcohol abuse, prescription drug abuse Family history: hypertension Medications and Allergies Allergies Allergy/AdvReac Type Severity Reaction Status Date / Time No Known Allergies Allergy Unverified 11/16/20 04:00 Home Medications Medication Instructions Recorded Confirmed Last Taken Type Ascorbic Acid [Vitamin C] 500 mg PO BID #60 tablet 11/19/20 Unknown Rx Cholecalciferol Vit D3 [Vitamin D3 1,000 unit PO DAILY #30 tablet 11/19/20 Unknown Rx 1,000 UNIT TAB] Zinc Sulfate 220 mg PO BID #60 capsule 11/19/20 Unknown Rx dexAMETHasone [Dexamethasone] 6 mg PO DAILY #7 tablet 11/19/20 Unknown Rx Active Meds: Active Medications Acetaminophen (Acetaminophen 325 Mg Tab) 650 mg PO Q4H PRN PRN Reason: Pain MILD(1-3)/Fever >100.5/TIAN Albuterol (Albuterol 2.5 Mg/3 Ml Nebu) 2.5 mg IH Q4HRT PRN PRN Reason: Shortness Of Breath Ascorbic Acid (Ascorbic Acid 500 Mg Tab) 500 mg PO BID [facility] Last Admin: 11/19/20 10:53 Dose: 500 mg Documented by: Azithromycin (Azithromycin 250 Mg Tab) 500 mg PO QDAY [facility]; Protocol Stop: 11/20/20 10:01 Last Admin: 11/19/20 10:52 Dose: 500 mg Documented by: Cholecalciferol (Cholecalciferol (Vit D3) 1000 Unit (25 Mcg) Tab) 1,000 unit PO DAILY [facility] Last Admin: 11/19/20 10:53 Dose: 1,000 unit Documented by: Heparin Sodium (Porcine) (Heparin 5,000 Unit/1 Ml Vial) 5,000 unit SUB-Q Q12HR [facility] Last Admin: 11/19/20 11:03 Dose: 5,000 unit Documented by: Hydromorphone HCl (Hydromorphone 1 Mg/1 Ml Inj) 0.5 mg IV Q12H PRN PRN Reason: Pain , Severe (7-10) Ceftriaxone Sodium (Rocephin/Ns 2 Gm/100 Ml) 2 gm in 100 mls @ 200 mls/hr IV Q24H [facility]; Protocol Stop: 11/20/20 12:29 Last Admin: 11/19/20 12:34 Dose: 200 mls/hr Documented by: Methylprednisolone Sodium Succinate (Methylprednisolone Sod Succinate 40 Mg/1 Ml Inj) 40 mg IV Q8HR [facility] Last Admin: 11/19/20 07:39 Dose: 40 mg Documented by: Ondansetron HCl (Ondansetron 4 Mg/2 Ml Inj) 4 mg IV Q8H PRN PRN Reason: Nausea And Vomiting Last Admin: 11/17/20 20:01 Dose: 4 mg Documented by: Oxycodone/Acetaminophen (Oxycodone /Acetaminophen 5-325mg Tab) 1 tab PO Q12H PRN PRN Reason: Pain, Moderate (4-6) Sodium Chloride (Sodium Chloride 0.9% 10 Ml Flush Syringe) 10 ml IV BID [facility] Last Admin: 11/18/20 22:37 Dose: 10 ml Documented by: Sodium Chloride (Sodium Chloride 0.9% 10 Ml Flush Syringe) 10 ml IV PRN PRN PRN Reason: LINE FLUSH Zinc Sulfate (Zinc Sulfate 220 Mg Cap) 220 mg PO BID [facility] Last Admin: 11/19/20 10:53 Dose: 220 mg Documented by: Physical Examination - Physical Exam Narrative exam: Physical Exam (reviewed in chart to minimize risk of transmission) Constitutional: deferred Head, Ears, Nose: deferred Eyes: deferred Neck: deferred Oral: deferred Cardiovascular: deferred Respiratory: deferred GI: deferred Musculoskeletal: deferred Skin: deferred Hem/Lymphatic: deferred Psych: deferred Neurological: deferred - Constitutional Vitals: Vital Signs Temp Pulse Resp BP Pulse Ox 98.9 F 63 19 138/89 96 11/18/20 00:00 11/19/20 06:30 11/19/20 06:30 11/19/20 06:30 11/19/20 06:30 Results - Labs CBC & Chem 7: 11/18/20 05:54 11/18/20 05:54 - Imaging and Cardiology Chest x-ray: report reviewed, image reviewed (mild b/l pna) Assessment and Plan Cultures: SARS CoV2 PCR: Positive Blood cultures: No growth A/P: 60/F with HTN: #Bilateral pneumonia: Secondary to COVID-19. CTA negative for pulmonary embolism #Acute hypoxic respiratory failure: on NC but improving Recs: -Continue steroids, on methylprednisolone -Antibiotics discontinued due to low procalcitonin -Given improvement in hypoxia, hold off on remdesivir -prophylactic anticoagulation based on d-dimer per hospital protocol -agree with ambulatory sats, if clears, OK for discharge to complete steroid course Samuel Ingram MD, FACP [facility] O: [phone] F: [phone]
[2020-11-19 16:29] VITALS: BP 217/76
== END 2020-11-19 16:37 | disposition home or self-care (01) | DRG 177 ==
LOC: ED 15:43 → 3A 11-16 14:33
PROVIDERS: ADMIT Internal Medicine; ATTEND Internal Medicine
DX: U07.1 COVID-19 (principal); J96.01 Acute respiratory failure with hypoxia; J12.82 Pneumonia due to coronavirus disease 2019; I10 Essential (primary) hypertension; R07.89 Other chest pain; M94.0 Chondrocostal junction syndrome [Tietze]; Z59.0 Homelessness; Z82.49 Family history of ischemic heart disease and other diseases of the circulatory system
CPT/HCPCS: 36415; 71045; 71275; 80048; 80053; 80061; 82140; 82550; 82553; 82728; 83615; 84145; 84484; 85025; 85027; 85379; 86140; 87040; 94760; G0378; J0456; J0696; J1644; J2405; J2920; J7040; Q9967; U0003